=== PATIENT | female | born 1955 | race Caucasian/White ===

== ENCOUNTER → 2016-09-01 | Outpatient (CLI) | payer MEDICARE, OTHER ==
[~2016-09-01] MED LIST: ABILIFY2 MG PO; ABILIFY5 MG PO; ACETAMINOPHEN PO; ACETAMINOPHEN PR; ALBUTEROL1.25 MG/3 INH; ASPIRIN EC81 M1 PO; ASPIRIN81 MG PO; BYSTOLIC5 MG PO; CLARITIN10 M2 PO; CLARITIN10 M3 PO; CLOPIDOGREL75 MG PO; CYMBALTA PO; DELTASONE20 MG PO; DULOXETINE HCL60 MG PO; FLUVIRIN; GLUCOPHAGE500 M1 PO; GUAIFENESIN LA600 M1 PO; HYDROCHLOROTH12.5 MG PO; KEFLEX500 M1 PO; KLOR-CON PO; KLOR-CON SPRIN10 MEQ PO; LASIX PO; LEVAQUIN750 M1 PO; LEVAQUIN750 MG PO; LEVOTHROID150 MCG PO; LEVOTHYROXINE150 MC1 PO; LEVOXYL150 MCG PO; LIDOCAINE-PRILOC5 GM TOP; LORCET 10/650 T1 TAB PO; LORTAB 7.5-5001 TAB PO; LYRICA50 MG PO; LYRICA75 MG PO; MEDROL DOSEPAK4 MG PO; MEDROL4 MG/DOSE- PO; METFORMIN HCL500 M1 PO; MORGIDOX100 MG PO; MORPHINE SULFAT15 M3 PO; MORPHINE SULFAT30 M4 PO; NICOTINE TRANSD21 MG EXT; OMEPRAZOLE20 M1 PO; OMEPRAZOLE20 M2 PO; ORAMORPH SR15 MG PO; OS-CAL 500 + D500 MG PO; OXYCODONE HCL15 MG PO; OXYCODONE HCL30 MG PO; PHENERGAN25 M1 PO; PLAVIX PO; PRAVACHOL20 MG PO; PRAVASTATIN SOD20 MG PO; PREDNISONE PO; PREDNISONE1 MG; PRILOSEC20 M1 PO; PRILOSEC20 MG PO; PROMETHAZINE D118 ML PO; PROMETHAZINE HC25 MG PO; PROZAC PO; ROXICODONE30 M1 PO; SPIRIVA RESPIMAT4 G1 PO; SPIRIVA18 MCG INH; SYMBICORT INH; SYNTHROID PO; TUDORZA PRESS400 MCG IH; VIBRAMYCIN100 M1 PO; ZANAFLEX2 M2 PO; ZANAFLEX4 M1 PO; ZOCOR PO; ZOFRAN8 MG PO
--- NOTE | ~2016-09-01 | XA91 ---
[facility] A Service of [facility] & [facility] RADIOLOGY TEXT RESULTS PATIENT: SERGO IBARRA LOCATION: CIVR : 57 UNIT #: [id number] AGE: [address]: Odilia Bullock MD SEX: F ORDER DR: [id number] [facility] [address]. [place], [place] [address] [id number] O MR#: [id number] Acc #: [id number] NAME: SERGO IBARRA : 1955 SEX: F STUDY DATE/TIME: 09/01/2016 11:12 UNIT: CIVR ROOM: STUDY DESCRIPTION: XA CVC Tunneled W Port Attending Physician: Odilia Bullock M.D. Ordering Physician: Odilia Bullock M.D. Primary Care Physician: Ananya Armstrong M.D. MEDICAL IMAGING REPORT This report is preliminary unless electronic signature is present EXAM Port placement under ultrasound and fluoroscopic guidance HISTORY Lung cancer. TECHNIQUE The procedure was explained the patient including risks, benefits and complications. Informed consent was obtained and a formal time-out procedure was utilized. Full barrier sterile technique was employed via standard protocol. Conscious sedation was employed with intravenous Versed and Fentanyl that was administered by nursing who was present and monitoring the patient during the examination. Using full barrier sterile technique and following local anesthesia with 1% Xylocaine, a right internal jugular vein was punctured with ultrasound guidance. Ultrasound was used to confirm vessel patency, which was confirmed, and permanent ultrasound images were recorded. A micropuncture set was used. An 0.035 guidewire was passed through the micropuncture sheath and a peel-away sheath was placed. Attention was then directed to the right infraclavicular space where a port pocket was created using a combination of blunt and sharp dissection after local anesthesia with 1% lidocaine with epinephrine. A slim power port was placed and tunneled from the port pocket to the jugular vein puncture site. It was measured to 23 cm, cut and deployed through the peel-away sheath with the tip positioned at the cavoatrial junction. The port was flushed with heparin solution and the port pocket was irrigated with saline. The pocket was closed with an interrupted subcutaneous layer of 3-0 Vicryl suture followed by running 4-0 subcuticular stitch with Monocryl. Dermabond glue was placed at the port pocket site and at the jugular vein puncture site. Total fluoroscopy time 0.1 minutes with a STS. [facility] A Service of [facility] & [facility] RADIOLOGY TEXT RESULTS PATIENT: SERGO [facility]BARRA [id number] [birth year] UNIT #: [id number] AGE: [address]: Odilia Bullock MD SEX: F ORDER DR: total dose of 2 mGy. IMPRESSION Successful placement of a port with ultrasound and fluoroscopic guidance as described above. Dictated by... Jonathan Cardenas M.D. THIS IS AN ELECTRONICALLY VERIFIED REPORT Jonathan Cardenas M.D. at 09/02/2016 8:39 AM RONI/andrew TD: 09/01/2016 20:32 JOB #: [id number] MEDICAL IMAGING REPORT COPY
[2016-09-01 08:59] LABS: HEMATOCRIT 37.3 % (35.0-45.0); HEMOGLOBIN 12.1 gm/dL (12.0-16.0); MEAN CELL VOLUME 87.9 FL (83-96); MEAN CORPUSCULAR HEMOGLOBIN 28.4 PG (28-34); MEAN CORPUSCULAR HGB CONC 32.4 g/dL (30-36); MEAN PLATELET VOLUME 7.7 FL (6.5-11.5); RED BLOOD COUNT 4.24 X10e (3.90-5.30); RED CELL DISTRIBUTION WIDTH 14.6 % (11.0-15.5); WHITE BLOOD COUNT 8.7 X10e3 (4.0-10.5)
[2016-09-01 09:11] LABS: INR 0.9; PARTIAL THROMBOPLASTIN TIME 23.1 SECONDS (23.5-31.3); PROTHROMBIN TIME (PATIENT) 9.9 SECONDS (9.6-11.5)
== END | disposition home or self-care (01) ==
LOC: CIVR 08:28
PROVIDERS: Internal Medicine Hematology
PROC: 05HM33Z Insertion of Infusion Device into Right Internal Jugular Vein, Percutaneous Approach (ICD-10-PCS; principal; 2016-09-01)
DX: Z45.2 Encounter for adjustment and management of vascular access device (principal); C34.2 Malignant neoplasm of middle lobe, bronchus or lung; J43.9 Emphysema, unspecified; Z99.81 Dependence on supplemental oxygen; C79.51 Secondary malignant neoplasm of bone; C78.7 Secondary malignant neoplasm of liver and intrahepatic bile duct; R59.0 Localized enlarged lymph nodes; M54.5 Low back pain; I31.3 Pericardial effusion (noninflammatory); K57.30 Diverticulosis of large intestine without perforation or abscess without bleeding; E27.9 Disorder of adrenal gland, unspecified; Z85.850 Personal history of malignant neoplasm of thyroid; Z96.642 Presence of left artificial hip joint; Z88.6 Allergy status to analgesic agent
CPT/HCPCS: 36415; 76937; 77001; 85027; 85610; 85730; C1788; J0690; J1642; J2250; J3010

== ENCOUNTER 2016-09-08 13:18 | Inpatient (IN) | payer MEDICARE, OTHER ==
--- NOTE | ~2016-09-08 | EKG ---
PATIENT: SERGO IBARRA UNIT #: [id number] Ventricular Rate: 115 BPM Atrial Rate: 115 BPM P-R Interval: 126 ms QRS Duration: 72 ms Q-T Interval: 314 ms QTC Calculation(Bezet): 434 ms P [place]: 79 degrees Calculated R [place]: 33 degrees Calculated T [place]: 62 degrees Diagnosis Line: Sinus tachycardia Baseline wander Diagnosis Line: Otherwise normal ECG Diagnosis Line: When compared with ECG of 11-AUG-2016 03:57, Diagnosis Line: No significant change was found Diagnosis Line: Confirmed by NETTA TEJADA MD ([id number]) on 09/09/2016 Diagnosis Line: 5:40:50 PM INTERPRETING MD: MALLORY PINEDA
--- NOTE | ~2016-09-08 | EKG ---
PATIENT: SERGO IBARRA UNIT #: [id number] Ventricular Rate: 106 BPM Atrial Rate: 106 BPM P-R Interval: 118 ms QRS Duration: 72 ms Q-T Interval: 340 ms QTC Calculation(Bezet): 451 ms P [place]: 74 degrees Calculated R [place]: 22 degrees Calculated T [place]: 50 degrees Diagnosis Line: Sinus tachycardia with Premature atrial complexes Diagnosis Line: with Aberrant conduction Diagnosis Line: Nonspecific ST abnormality Diagnosis Line: Abnormal ECG Diagnosis Line: When compared with ECG of 08-SEP-2016 13:08, Diagnosis Line: Aberrant conduction is now Present Diagnosis Line: ST now depressed in Inferior leads Diagnosis Line: Confirmed by FIDEL CASE MD ([id number]) on Diagnosis Line: 09/15/2016 11:23:20 AM INTERPRETING MD: MANPREET PINEDA
--- NOTE | ~2016-09-08 | HP ---
Unit #: [id number] #: [id number] Patient: SERGO ROWLEY [id number] [address] [address] [id number] I MR#: [id number] NAME: SERGO ROWLEY ROOM: 304 Age: 61 Sex: F Admission Date: 09/08/2016 : 1955 Attending Physician: Ellen Del Castillo M.D. Primary Care Physician: Ananya Armstrong M.D. HISTORY AND PHYSICAL ADMISSION DIAGNOSES 1. Acute hypoxemic respiratory failure. 2. Acute exacerbation of chronic obstructive pulmonary disease. 3. History of recently diagnosed lung cancer, status post chemotherapy. 4. Acute bronchitis. 5. Hypertension. 6. History of dyslipidemia. 7. History of cerebrovascular accident. HISTORY OF PRESENT ILLNESS Ms. Rowley is a 61-year-old female with a past medical history of recently diagnosed lung cancer, status post chemo, along with COPD and chronic respiratory failure, who comes to the emergency room with complaints of increasing shortness of air and dyspnea for the last three to four days, along with some productive cough. The patient denies any other symptoms and denies any fever, chills, chest pain, headache, dizziness, nausea, vomiting, diarrhea, or abdominal pain. So a 12-point review of systems on this patient basically is negative except as above. PAST MEDICAL HISTORY 1. Recently diagnosed lung cancer. 2. Chronic obstructive pulmonary disease. 3. Chronic respiratory failure. 4. Dyslipidemia. 5. Hypertension. 6. Cerebrovascular accident in the past. 7. Thyroid cancer, status post thyroidectomy. 8. Transient ischemic attacks. 9. Chronic back pain. 10. Tobacco use. PAST SURGICAL HISTORY 1. Thyroid surgery. 2. Multiple back surgeries. 3. Diagnostic bronchoscopy. HOME MEDICATIONS 1. Symbicort. 2. Bystolic. 3. Lyrica. 4. Glucophage. 5. Hydrochlorothiazide. 6. Omeprazole. 7. Cymbalta. Unit #: [id number] #: [id number] Patient: SERGO ROWLEY 8. Oxycodone. 9. Pravastatin. 10. Klor-Con. 11. Albuterol. 12. Levothyroxine. 13. Plavix. 14. Zofran. 15. Phenergan. 16. Lidocaine topical. ALLERGIES ASPIRIN AND NSAIDS GENERALLY. SOCIAL HISTORY No current history of tobacco, alcohol, or illicit drugs. FAMILY HISTORY Unremarkable. PHYSICAL EXAMINATION GENERAL: Patient is a 61-year-old female in no acute distress. VITAL SIGNS: Blood pressure 154/93, heart rate 97, respirations 22, and temperature 97.5. HEENT: Head is atraumatic. Pupils equal, round, and reactive to light and accommodation. Extraocular muscles intact. Oropharynx clear. NECK: Supple. No mass, no JVD, and no bruits. CHEST: Diminished bilaterally. CARDIOVASCULAR: S1 and S2. No murmurs. ABDOMEN: Soft, nontender, and nondistended. LOWER EXTREMITIES: Without any cyanosis, clubbing, or edema. NEUROLOGIC: Grossly intact with no new focal deficits. DIAGNOSTIC STUDIES LABORATORY: White count 10.5 and hemoglobin and hematocrit 12 and 36.9. Set of cardiac enzymes negative. Coagulation panel unremarkable. Chemistry significant for blood glucose of 148. IMAGING: Chest x-ray shows no new infiltrates. CT angiogram of the chest shows a large right hilar mass. No CT evidence of pulmonary embolus. ASSESSMENT AND PLAN 1. Acute respiratory failure secondary to acute exacerbation of chronic obstructive pulmonary disease. Continue bronchodilators and steroids. Pulmonary follows. 2. History of lung cancer, status post initiation of chemotherapy, status post IV port. 3. Acute bronchitis. Continue Levaquin. 4. Hypertension. Resume home medications. 5. Dyslipidemia. Continue home medications. 6. History of cerebrovascular accident and transient ischemic attacks. Continue home medications. 7. Continue current gastrointestinal and deep venous thrombosis prophylaxis with Protonix and Lovenox. 4. 1. Dictated by Roldan Calix M.D. Unit #: [id number] #: [id number] Patient: SERGO ROWLEY OC/kiara TD: 09/09/2016 21:51 JOB #: [id number] HISTORY AND PHYSICAL X Roldan Calix MD HISTORY AND PHYSICAL
--- NOTE | ~2016-09-08 | CR72 ---
[facility] A Service of [facility] & [facility] RADIOLOGY TEXT RESULTS PATIENT: SERGO IBARRA LOCATION: [facility] : [birth year] UNIT #: [id number] AGE: [address]: Chandana Yusuf MD SEX: F ORDER DR: [id number] [facility] [address] [facility]. [place], [place] [address] [id number] MR#: [id number] Acc #: [id number] NAME: SERGO IBARRA : 1955 SEX: F STUDY DATE/TIME: 09/08/2016 13:05 UNIT: [facility] ROOM: STUDY DESCRIPTION: CR Chest Single View Portable Attending Physician: Chandana Yusuf M.D. Ordering Physician: Chandana Yusuf M.D. Primary Care Physician: Ananya Armstrong M.D. MEDICAL IMAGING REPORT This report is preliminary unless electronic signature is present EXAM Portable chest INDICATION 61-year-old female with shortness of breath for 2 days. COMPARISON Comparison with 08/11/2016. FINDINGS There is decreased infiltrate in the right upper zone. No new infiltrates. Heart size stable. Stable chest port. IMPRESSION Decreased right upper zone infiltrate. No new infiltrates. Dictated by... Bharath Gillette M.D. THIS IS AN ELECTRONICALLY VERIFIED REPORT Bharath Gillette M.D. at 09/08/2016 3:33 PM HOWARD/cindy TD: 09/08/2016 15:20 JOB #: [id number] MEDICAL IMAGING REPORT COPY
--- NOTE | ~2016-09-08 | CO ---
Unit #: [id number] #: [id number] Patient: SERGO IBARRA [id number] [address] [place], [place] [address] [id number] I MR#: [id number] NAME: SERGO IBARRA ROOM: 304 Age: 61 Sex: F Admission Date: 09/08/2016 : 1955 Attending Physician: Ellen Del Castillo M.D. Primary Care Physician: Ananya Armstrong M.D. 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 HISTORY OF PRESENT ILLNESS This is a 61-year-old female who started smoking at age of 17. She has been smoking 2 packs per day for 40 years. The patient came to the hospital short of breath, left-sided pleuritic chest pain. She lost about 40 pounds in 8 months. She was trying to lose weight, as well. The patient had a CT of the chest PE protocol on August 13, 2016. There were multiple abnormalities. There is a 3 cm lymph node in the right paratracheal region. The patient had a subcarinal mass measuring about 3.8 x 2.3 cm. Right upper lobe mass was almost 6 cm. Multiple lesions in the liver and vertebral body. Bronchoscopy was positive for small cell lung cancer. MRI of the brain was normal. The patient had a PET scan on August 20." It showed wide-spread disease in the lung, the liver and the bone. There is a significant lesion in the right pelvic bone. The patient received 1 cycle of DRAFTER CHIEF DESIGN-16 and carboplatin. Yesterday the patient had significant shortness of breath, dyspnea on exertion, decline in performance status. As a result, she is admitted. She has acute exacerbation of COPD. She is receiving inhaler, antibiotics and steroid. REVIEW OF SYSTEMS CONSTITUTIONAL: No fever, no chills, no sweats, no weight loss. EYES: No visual symptoms. EARS, NOSE AND THROAT: There is no runny nose or sore throat or difficulty hearing. CARDIOVASCULAR: No chest pain. No shortness of breath. No palpitations. No orthopnea. No PND. RESPIRATORY: As mentioned above. GASTROINTESTINAL: No nausea, vomiting, diarrhea, constipation, hematochezia or melena. GENITOURINARY: No urinary frequency, hesitancy or urgency. No blood in the urine. MUSCULOSKELETAL: No muscle or joint pain. NEUROLOGIC: No headache. No numbness or tingling. No weakness. No seizure. PSYCHIATRIC: No anxiety, depression or mood disturbance. ENDOCRINE: No excessive urination or thirst. DERMATOLOGIC: No rash or change in the skin. ALLERGIC/IMMUNOLOGIC: No symptoms. Unit #: [id number] #: [id number] Patient: SERGO IBARRA HEMATOLOGIC/LYMPHATIC: Denies any symptoms. PAST MEDICAL HISTORY 1. Small cell lung cancer, stage IV, wide-spread disease in the lung, liver and bones. 2. COPD. 3. Hypertension. 4. TIA, on Plavix. PAST SURGICAL HISTORY 1. Back surgery x2. 2. Left-sided hip replacement. 3. Hysterectomy. ALLERGIES NSAIDs and aspirin. SOCIAL HISTORY As mentioned above, she started smoking at a very young age. Has more than 80 pack-year smoking history. Denies alcohol abuse. She is on disability. FAMILY HISTORY Mother had breast cancer, but she was in her 70s. CURRENT MEDICATIONS Lovenox, Levaquin, Solu-Medrol, DuoNeb, Lipitor, Lyrica, Phenergan, Protonix, Coreg, Combivent. PHYSICAL EXAMINATION GENERAL: Patient is comfortable. ECOG is 0. The patient is pleasant. VITALS: Afebrile. Pulse 88, respiratory rate 20, O2 sat on 3 liters 97%, blood pressure 150/96. HEENT: Moist mucosa. Pupils equally reactive to light. Extraocular muscles intact. Sclerae anicteric. No obvious bleeding from nasal mucosa or oral mucosa. Scalp normal. Hearing normal. NECK: No JVD. No lymphadenopathy. LYMPHATIC/HEMATOLOGIC: There is no palpable adenopathy in the neck, axilla or inguinal area. CARDIOVASCULAR: S1, S2. Regular rate and rhythm. No S3 or S4. RESPIRATORY: Chest symmetrical, normal. Clear to auscultation bilaterally. No wheezes, no rales, no rhonchi. No dullness to percussion. ABDOMEN/GASTROINTESTINAL: Abdomen is soft, nontender, nondistended. No hepatosplenomegaly. EXTREMITIES: There is no clubbing, no cyanosis, no edema. No varicose veins. NEUROLOGICAL: Patient is alert, awake and oriented x3. Cranial nerves II-XII are intact. Sensory grossly intact. Motor is 4/5 in all four extremities. Gait is normal. Station is normal. Language is normal. Memory is normal. DTRs +2 in all four extremities. MUSCULOSKELETAL: No joint swelling. No bony tenderness. No muscle tenderness. SKIN: No petechiae, no rash, no ecchymosis. PSYCHIATRIC: No anxiety. No delusions or hallucinations. There is no agitation. Eye contact is normal. Affect is appropriate. There is no flight of ideas. DIAGNOSTIC STUDIES LABS: Creatinine is 0.5. LFTs are normal. WBC is 10.5, hemoglobin 12, Unit #: [id number] #: [id number] Patient: SERGO IBARRA platelets 230. IMAGING: CT of the chest PE protocol on 09/08/2016. No PE, but the above-mentioned masses are persistent. ASSESSMENT AND PLAN This is a 61-year-old female with the following active issues: 1. Small cell lung cancer. The patient has extensive stage IV disease. The patient has metastatic disease in the liver and the bone. She received one cycle of DRAFTER CHIEF DESIGN-16 and carboplatin. She already received Neulasta. Once her acute condition resolves, then in 3 weeks she will receive second cycle. She is also on Zometa. 2. Respirations. The patient has acute exacerbation of COPD. She is receiving steroid, antibiotic and inhaler. Will consult Dr. Mckenzie. 3. Anemia; improved. Dictated by... Jenna Barrios TD: 09/09/2016 11:00 JOB #: [id number] CONSULTATION REPORT X Odilia Bullock MD X CONSULTATION REPORT
--- NOTE | ~2016-09-08 | DS ---
Unit #: [id number] #: [id number] Patient: SERGO IBARRA [id number] [address] [place], [place] [address] [id number] I MR#: [id number] NAME: SERGO IBARRA ROOM: 304 Age: 61 Sex: F Admission Date: 09/08/2016 : 1955 Discharge Date: Attending Physician: Ellen Del Castillo M.D. Primary Care Physician: Ananya Armstrong M.D. DISCHARGE SUMMARY ADDENDUM Patient's discharge was held yesterday to rehab facility as family had a discussion with Dr. Bullock at length and patient's code status was changed to DNR and family requests for hospice care. Hospice has been consulted and possibly she will be going home under hospice care. I have discussed with Dr. Bullock about plan of care. He does verbalize understanding and agreeable. Discussed with patient this morning and she is agreeable to this plan. [facility] nurse, Shanice, will be here this morning for discharge. VITAL SIGNS today - blood pressure is 107/67, respiratory rate 18, pulse is 103, temperature 97.9. CHEST has decreased air entry bilaterally. CVS - S1, S2 positive. ABDOMEN is obese. EXTREMITIES - trace edema. DISCHARGE INSTRUCTIONS 1. Patient is being discharged home in stable condition. 2. Med Rec as per discharge dictated earlier. 3. Med Rec has been reviewed again today. Please refer to the discharge Med Rec for complete list. Dictated by... Ellen Del Castillo M.D. MICKY/donna TD: 09/17/2016 09:23 JOB #: [id number] DISCHARGE SUMMARY X Ellen Del Castillo MD X DISCHARGE SUMMARY
--- NOTE | ~2016-09-08 | CR72 ---
[facility] A Service of [facility] & [facility] RADIOLOGY TEXT RESULTS PATIENT: SERGO IBARRA LOCATION: [facility] 304-01 : [birth year] UNIT #: [id number] AGE: [address]: Ellen Del Castillo MD SEX: F ORDER DR: [id number] [facility] [address] [place], [place] [address] [id number] I MR#: [id number] Acc #: [id number] NAME: SERGO IBARRA : 1955 SEX: F STUDY DATE/TIME: 09/10/2016 15:39 UNIT: [address] ROOM: [facility] STUDY DESCRIPTION: CR Chest Single View Portable Attending Physician: Ellen Del Castillo M.D. Ordering Physician: Ellen Del Castillo M.D. Primary Care Physician: Ananya Armstrong M.D. MEDICAL IMAGING REPORT This report is preliminary unless electronic signature is present EXAM AP portable chest, 09/10/2016. HISTORY Pneumonia. Right upper lobe mass. COMPARISON STUDIES Single portable AP view of the chest compared to chest CT dated 09/08/2016 and chest radiograph, dated 09/08/2016. FINDINGS Heart and mediastinal contours are unchanged. Right upper lobe pulmonary opacity/mass is unchanged from the prior study. There is background emphysema. No new pulmonary opacities. IMPRESSION 1. No interval change. 2. Right upper lobe area of consolidation/mass. Dictated by... Marquez Mcadams M.D. THIS IS AN ELECTRONICALLY VERIFIED REPORT Marquez Mcadams M.D. at 09/13/2016 8:06 AM TAYLOR/tootie TD: 09/11/2016 10:14 JOB #: [id number] MEDICAL IMAGING REPORT COPY
--- NOTE | ~2016-09-08 | DS ---
Unit #: [id number] #: [id number] Patient: LESLIE IBARRA [id number] [address] [address] [id number] I MR#: [id number] NAME: LESLIE IBARRA ROOM: 304 Age: 61 Sex: F Admission Date: 09/08/2016 : 1955 Discharge Date: 09/16/2016 Attending Physician: Ellen Del Castillo M.D. Primary Care Physician: Ananya Armstrong M.D. DISCHARGE SUMMARY FINAL DIAGNOSES 1. Small cell lung cancer stage 4. 2. Acute on chronic respiratory failure. 3. Chronic obstructive pulmonary disease exacerbation. 4. Hypertension. 5. Hyperlipidemia. 6. Hypokalemia. 7. Leukopenia and thrombocytopenia. 8. History of cerebrovascular accident in the past. 9. Thyroid cancer, status post thyroidectomy. 10. Chronic back pain. 11. Tobacco abuse. DISCHARGE MEDICATIONS 1. Prednisone tapering dose. 2. Omeprazole 20 mg p.o. daily. 3. Plavix 75 mg p.o. daily. 4. Oxycodone 15 mg p.o. 4 times a day. 5. Pravastatin 20 mg daily. 6. Hydrochlorothiazide 12.5 mg daily. 7. Milk of magnesia 30 mL q.12 p.r.n. for constipation. 8. Colace 100 mg 3 times a day. 9. Coreg 3.125 mg twice a day. 10. Zofran 4 mg q.6 p.r.n. for nausea. 11. Marinol 5 mg twice a day. 12. Cymbalta 60 mg daily. 13. Lyrica 75 mg 3 times a day. 14. Symbicort 160/4.5 two puffs inhaler twice a day. 15. Nebulizer treatment with albuterol and ipratropium q.i.d. and q.4 p.r.n. 16. Synthroid 150 mcg p.o. daily. 17. Folic acid 1 mg p.o. daily. 18. Cyanocobalamin 1,000 mcg subcu daily. 19. Potassium 40 mg p.o. daily. CONSULTANTS DURING HOSPITALIZATION 1. Dr. Bullock from oncology services. 2. Dr. Mckenzie from pulmonary services. ADMITTING PHYSICIAN Dr. Calix DISCHARGING PHYSICIAN Dr. Ellen Del Castillo Unit #: [id number] #: [id number] Patient: LESLIE IBARRA HOSPITAL COURSE Ms. Leslie Armijo is a 61-year-old female who has a history of stage 4 small cell lung cancer, which is metastatic to liver, adrenal gland, L1 vertebral body and right pelvis bone, came to the hospital with shortness of breath, left-sided pleuritic chest pain. She has lost a lot of weight, about 40 pounds in eight months. Patient was seen by Dr. Mckenzie and was started on antibiotics and IV Solu-Medrol. That will be changed to steroids. Her oxygenation has improved. She will be on home O2 to keep her saturation above 92%. The patient did have nausea and vomiting, which has improved. The patient had pancytopenia, most likely secondary to chemotherapy, which was just prior to coming to hospitalization. Dr. Bullock has been meeting with family today at 12:00 before discharge to rehab facility to discuss the code status and further plan. The patient does have a poor prognosis, this has been told to family on multiple occasions by the [facility]. Vital signs on discharge - blood pressure is 120/64, respiratory rate 16, pulse 110, temperature 98.2. Head is normocephalic. Chest has decreased air entry bilateral. CVS - S1 and S2 positive. Regular rhythm, tachycardia. DISCHARGE INSTRUCTIONS 1. The patient will be discharged to rehab facility after meeting with Dr. Bullock. 2. Medication as per med rec. 3. PT and OT at rehab. 4. Follow up with Dr. Bullock in the office in a week. 5. BMP and magnesium to be done tomorrow to evaluate hypokalemia and magnesemia. Dictated by... Jenna Alvarado TD: 09/16/2016 12:09 JOB #: [id number] DISCHARGE SUMMARY X Ellen Del Castillo MD DISCHARGE SUMMARY
--- NOTE | ~2016-09-08 | CT16 ---
[facility] A Service of [facility] & [facility] RADIOLOGY TEXT RESULTS PATIENT: SERGO IBARRA LOCATION: [facility] 304-01 : 56 UNIT #: [id number] AGE: [address]: Ellen Del Castillo MD SEX: F ORDER DR: [id number] [facility] [address] [place], [place] [address] [id number] I MR#: [id number] Acc #: [id number] NAME: SERGO IBARRA : 1955 SEX: F STUDY DATE/TIME: 09/08/2016 14:50 UNIT: A PCU ROOM: [facility] STUDY DESCRIPTION: CT Angio Chest for PE Attending Physician: Ellen Del Castillo M.D. Ordering Physician: Chandana Yusuf M.D. Primary Care Physician: Ananya Armstrong M.D. MEDICAL IMAGING REPORT This report is preliminary unless electronic signature is present EXAM CTA chest with pulmonary embolus protocol. DATE OF EXAM 09/08/2016 INDICATIONS Shortness of breath for 2 days. TECHNIQUE Patient was given 80 mL of Isovue-370, and spiral imaging was performed through the chest. 3-D reconstructions of the pulmonary arteries were generated. NOTE: This CT exam was performed with one or more of the following radiation dose reduction techniques: automatic exposure control, adjustment of mA and/or kV according to patient size, and iterative reconstruction. FINDINGS There is adequate opacification of the aorta, and there is no dissection or enlargement. Pulmonary arteries are adequately opacified and they appear normal. 3-D reconstructions of the pulmonary arteries were generated. There is extensive mediastinal mass or adenopathy. In the right superior mediastinum, there is a mass inseparable from the greater subclavian vein and brachiocephalic vein. It is about 2.7 x 2.5 cm. There is a right paratracheal mass measuring at least 4.2 x 2.8 cm compressing the IVC. There is a right hilar mass surrounding the right hilar structures extending in the subcarinal region, it is about 6.6 x 5.9 cm. The adenopathy extends down the right infrahilar region with a node measuring 18 mm in diameter. Small pericardial effusion. There is a right adrenal mass measuring 2 cm in diameter, that is uniform in soft tissue density and there is a left adrenal mass that is 2.4 cm in diameter that clearly has some fat within it. The right hilar mass extends a short distance up into the right upper lobe. There are multiple noncalcified STS. [facility] A Service of [facility] RADIOLOGY TEXT RESULTS PATIENT: SERGO IBARRA LOCATION: A 304-01 : 57 UNIT #: [id number] AGE: [address]: Ellen Del Castillo MD SEX: F ORDER DR: pulmonary nodules. There are 2 nodules in the right base measuring up to about 8 mm in diameter and at least 2 to 3 other smaller nodules in the right lower lobe superior segment. There is emphysematous change in the upper lobes. There is a pleural-based nodule in the left base measuring 6 mm in diameter. There is a sclerotic 1 cm lesion in L1, that is possibly a metastatic deposit. The patient has known metastatic disease, and there are low density lesions in the liver. IMPRESSION 1. There is a large right hilar mass with a separate right paratracheal mass and superior mediastinal mass on the right side, consistent with malignancy. The mass in the right hilum extends upwards into the right upper lobe, as well as downwards into the right infrahilar region. There are also small nodules in the right lower lobe, as well as 1 small nodule in the left lower lobe suggesting metastatic disease. 2. There is no CT evidence colon embolus. Dictated by... Rodger Kurtz M.D. THIS IS AN ELECTRONICALLY VERIFIED REPORT Rodger Kurtz M.D. at 09/09/2016 6:04 AM SAEID/staci TD: 09/08/2016 21:06 JOB #: [id number] MEDICAL IMAGING REPORT COPY
--- NOTE | ~2016-09-08 | CO ---
Unit #: [id number] #: [id number] Patient: SERGO IBARRA [id number] [address] [place], [place] [address] [id number] MR#: [id number] NAME: SERGO IBARRA ROOM: 304 Age: 61 Sex: F Admission Date: 09/08/2016 : 1955 Attending Physician: Ellen Del Castillo M.D. Primary Care Physician: Ananya Armstrong M.D. CONSULTATION REPORT REASON FOR CONSULTATION Respiratory failure and COPD exacerbation. CHIEF COMPLAINT Shortness of breath. HISTORY OF PRESENT ILLNESS This patient basically is a 61-year-old female diagnosed recently with small cell lung cancer status post chemotherapy. Came in with complaint of cough, shortness of breath, increasing sputum production for the last 2-3 days. I am seeing the patient at the bedside. She denies any nausea, vomiting, diarrhea. Appears to be in mild distress. REVIEW OF SYSTEMS Positive pallor. No edema. No cyanosis. No jaundice. The rest of a 12-point review of systems has been reviewed and is negative. PHYSICAL EXAMINATION VITAL SIGNS: Her temperature is 97, pulse 95, respirations 16, blood pressure 137/97. NEUROLOGIC: Awake, alert and oriented. No neuro deficits. HEENT: PERRLA. EOMI. NECK: Supple. No JVD. CHEST: Bilateral air entry. Bilateral mild rhonchi. GI: Nontender. Soft. Bowel sounds are positive. EXTREMITIES: No edema. SKIN: No rashes, no ulcer. LYMPHATIC: No lymphadenopathy. DIAGNOSTIC STUDIES LABS: Blood gas - pH 7.34, pCO2 56, pO2 96 on 2 liters. Sodium is 148, BUN 8, creatinine 0.5. White count 10, hemoglobin 12, hematocrit 36, platelet count 230. IMAGING: CT chest PE protocol was done, which showed large right hilar mass with a separate right paratracheal mass and superior mediastinal mass on the right side consistent with malignancy. Mass in the right hilum extends upwards toward the right upper lobe. Also, small nodules in the right lower lobe. No evidence of pulmonary embolism. No consolidation. ASSESSMENT 1. Acute hypoxic respiratory failure. 2. Acute exacerbation of COPD. 3. Acute bronchitis. Unit #: [id number] #: [id number] Patient: SERGO IBARRA PLAN Plan is to check the patient for flu. Continue IV steroids. Add IV antibiotics. Continue oxygen, bronchodilator. GI and DVT prophylaxis. Oncology consultation has been requested. Will continue to monitor the patient. Please see orders for detailed plan. Thank you very much for this consultation. Dictated by... Jenna Mascorro/timo TD: 09/09/2016 13:29 JOB #: [id number] CONSULTATION REPORT X aFye Mckenzie MD CONSULTATION REPORT
[2016-09-08 13:00] LABS: ARTERIAL BLD GAS O2 SATURATION 96.1 % (90.0-100.0); ARTERIAL BLOOD GAS CARBOXY HB 0.9 %sat (0.0-9.0); ARTERIAL BLOOD GAS HCO3 30.9 mmol/L; ARTERIAL BLOOD GAS MET HB 0.8 %sat (0.0-2.0); ARTERIAL BLOOD GAS PO2 96.8 mmHg (80.0-100); ARTERIAL BLOOD GAS pH 7.344 (7.350-7.450)
[2016-09-08 13:03] LABS: ARTERIAL BLOOD GAS ALLEN TEST NORMAL; ARTERIAL BLOOD GAS ART SITE RIGHT RADIAL; ARTERIAL BLOOD GAS PCO2 56.8 mmHg (35.0-45.0); ARTERIAL DRAW? YES
[2016-09-08 13:04] LABS: ARTERIAL BLOOD GAS DELIVERY NASAL CANNULA
[~2016-09-08 13:18] MED LIST changes: -LIDOCAINE-PRILOC5 GM TOP; -PROMETHAZINE HC25 MG PO; -ZOFRAN8 MG PO
[2016-09-08 13:21] LABS: BASOPHIL% 0.2 % (0-2.5); DIFF IND NO; EOSINOPHIL# 0.1 X10e3 (0-0.7); EOSINOPHIL% 0.5 % (0.0-7.0); HEMATOCRIT 36.9 % (35.0-45.0); LYMPHOCYTE# 0.4 X10e3 (1.0-3.5); LYMPHOCYTE% 3.7 % (17.0-45.0); MEAN CELL VOLUME 87.6 FL (83-96); MEAN CORPUSCULAR HEMOGLOBIN 28.5 PG (28-34); MEAN CORPUSCULAR HGB CONC 32.6 g/dL (30-36); MEAN PLATELET VOLUME 7.8 FL (6.5-11.5); MONOCYTE# 0.1 X10e3 (0-1.0); MONOCYTE% 1.2 % (3.0-12.0); NEUTROPHIL# 9.9 X10e3 (1.5-7.1); NEUTROPHIL% 94.4 % (40-75); PLATELET COUNT 230 X10e3 (140-420); RED BLOOD COUNT 4.22 X10e (3.90-5.30); RED CELL DISTRIBUTION WIDTH 15.1 % (11.0-15.5); WHITE BLOOD COUNT 10.5 X10e3 (4.0-10.5)
[2016-09-08 13:22] LABS: POC - CKMB 2.6 ng/mL (0.0-7.9); POC - TROPONIN <0.05 ng/mL (<=0.05)
[2016-09-08 13:44] LABS: ALBUMIN SERUM 3.4 g/dL (3.5-5.0); ALKALINE PHOSPHATASE 106 U/L (32-92); ALT (SGPT) 18 U/L (10-40); AST (SGOT) 25 U/L (10-42); BILIRUBIN, DIRECT 0.1 mg/dL (0.0-0.2); BILIRUBIN,INDIRECT 0.8 mg/dL (0.0-0.9); BILIRUBIN,TOTAL 0.9 mg/dL (0.2-2.0); BLOOD UREA NITROGEN 8 mg/dL (9-23); CALCIUM SERUM 8.1 mg/dL (8.4-10.2); CARBON DIOXIDE 29 mmol/L (22-31); CHLORIDE 98 mmol/L (100-111); CREATININE SERUM 0.5 mg/dL (0.6-1.4); GLOM FILT RATE Estimated ABOVE60 mL/min (>60); GLUCOSE FASTING 148 mg/dL (70-110); POTASSIUM 3.8 mmol/L (3.5-5.1); SODIUM 138 mmol/L (135-145)
[2016-09-08 13:57] LABS: INR 0.9; PARTIAL THROMBOPLASTIN TIME 23.5 SECONDS (23.5-31.3); PROTHROMBIN TIME (PATIENT) 9.9 SECONDS (9.6-11.5)
[2016-09-08] MEDS ORDERED: ZOFRAN8 MG PO (15:38)
[2016-09-08] MEDS ORDERED: PROMETHAZINE HC25 MG PO (15:39)
[2016-09-08] MEDS ORDERED: LIDOCAINE-PRILOC5 GM TOP (15:40)
[2016-09-09 12:50] LABS: ARTERIAL BLD GAS O2 SATURATION 94.7 % (90.0-100.0); ARTERIAL BLOOD GAS CARBOXY HB 0.9 %sat (0.0-9.0); ARTERIAL BLOOD GAS HCO3 30.1 mmol/L; ARTERIAL BLOOD GAS MET HB 0.5 %sat (0.0-2.0); ARTERIAL BLOOD GAS PCO2 51.3 mmHg (35.0-45.0); ARTERIAL BLOOD GAS pH 7.377 (7.350-7.450)
[2016-09-09 12:51] LABS: ARTERIAL BLOOD GAS ALLEN TEST NORMAL; ARTERIAL BLOOD GAS ART SITE RIGHT RADIAL; ARTERIAL BLOOD GAS DELIVERY NASAL CANNULA; ARTERIAL BLOOD GAS PO2 75.9 mmHg (80.0-100); ARTERIAL DRAW? YES
[2016-09-10 04:37] LABS: HEMATOCRIT 35.9 % (35.0-45.0); HEMOGLOBIN 11.6 gm/dL (12.0-16.0); MEAN CELL VOLUME 87.2 FL (83-96); MEAN CORPUSCULAR HEMOGLOBIN 28.2 PG (28-34); MEAN CORPUSCULAR HGB CONC 32.3 g/dL (30-36); RED BLOOD COUNT 4.12 X10e (3.90-5.30); RED CELL DISTRIBUTION WIDTH 14.6 % (11.0-15.5)
[2016-09-10 04:38] LABS: WHITE BLOOD COUNT 26.6 X10e3 (4.0-10.5)
[2016-09-10 04:40] LABS: ARTERIAL BLD GAS O2 SATURATION 96.1 % (90.0-100.0); ARTERIAL BLOOD GAS CARBOXY HB 0.9 %sat (0.0-9.0); ARTERIAL BLOOD GAS HCO3 31.3 mmol/L; ARTERIAL BLOOD GAS MET HB 0.8 %sat (0.0-2.0); ARTERIAL BLOOD GAS PCO2 52.4 mmHg (35.0-45.0); ARTERIAL BLOOD GAS PO2 91.2 mmHg (80.0-100); ARTERIAL BLOOD GAS pH 7.385 (7.350-7.450)
[2016-09-10 04:41] LABS: ARTERIAL BLOOD GAS ALLEN TEST NORMAL; ARTERIAL BLOOD GAS ART SITE RIGHT RADIAL; ARTERIAL BLOOD GAS DELIVERY NASAL CANNULA; ARTERIAL DRAW? YES
[2016-09-10 05:57] LABS: ALBUMIN SERUM 3.2 g/dL (3.5-5.0); ALKALINE PHOSPHATASE 95 U/L (32-92); ALT (SGPT) 17 U/L (10-40); AST (SGOT) 24 U/L (10-42); BILIRUBIN,TOTAL 0.9 mg/dL (0.2-2.0); BLOOD UREA NITROGEN 14 mg/dL (9-23); CALCIUM SERUM 7.4 mg/dL (8.4-10.2); CARBON DIOXIDE 29 mmol/L (22-31); CHLORIDE 94 mmol/L (100-111); CREATININE SERUM 0.5 mg/dL (0.6-1.4); GLOM FILT RATE Estimated ABOVE60 mL/min (>60); GLUCOSE FASTING 147 mg/dL (70-110); IRON SERUM 157 ug/dL (28-170); POTASSIUM 3.9 mmol/L (3.5-5.1); PROTEIN TOTAL SERUM 6.2 g/dL (6.0-8.3); SODIUM 132 mmol/L (135-145); TOTAL IRON BINDING CAPACITY 259 ug/dL (269-535); TRANSFERRIN 185 mg/dL (192-382); TRANSFERRIN SATURATION 61 % (20-50)
[2016-09-10 06:10] LABS: FERRITIN 295 ng/mL (11-307)
[2016-09-11 09:27] LABS: HEMOGLOBIN 11.7 gm/dL (12.0-16.0); MEAN CELL VOLUME 85.4 FL (83-96); MEAN CORPUSCULAR HEMOGLOBIN 27.7 PG (28-34); MEAN CORPUSCULAR HGB CONC 32.5 g/dL (30-36); MEAN PLATELET VOLUME 7.8 FL (6.5-11.5); RED BLOOD COUNT 4.21 X10e (3.90-5.30); RED CELL DISTRIBUTION WIDTH 14.2 % (11.0-15.5); WHITE BLOOD COUNT 25.3 X10e3 (4.0-10.5)
[2016-09-11 09:57] LABS: ALBUMIN SERUM 3.3 g/dL (3.5-5.0); ALKALINE PHOSPHATASE 101 U/L (32-92); ALT (SGPT) 17 U/L (10-40); AST (SGOT) 17 U/L (10-42); BILIRUBIN,TOTAL 0.8 mg/dL (0.2-2.0); BLOOD UREA NITROGEN 15 mg/dL (9-23); BUN/CREATININE RATIO 21.42; CALCIUM SERUM 7.6 mg/dL (8.4-10.2); CARBON DIOXIDE 31 mmol/L (22-31); CHLORIDE 93 mmol/L (100-111); CREATININE SERUM 0.7 mg/dL (0.6-1.4); GLOM FILT RATE Estimated ABOVE60 mL/min (>60); GLUCOSE FASTING 184 mg/dL (70-110); POTASSIUM 3.5 mmol/L (3.5-5.1); PROTEIN TOTAL SERUM 6.3 g/dL (6.0-8.3); SODIUM 133 mmol/L (135-145)
[2016-09-12 04:19] LABS: ARTERIAL BLD GAS O2 SATURATION 94.5 % (90.0-100.0); ARTERIAL BLOOD GAS CARBOXY HB 0.5 %sat (0.0-9.0); ARTERIAL BLOOD GAS HCO3 36.5 mmol/L; ARTERIAL BLOOD GAS MET HB 0.7 %sat (0.0-2.0); ARTERIAL BLOOD GAS pH 7.469 (7.350-7.450)
[2016-09-12 04:31] LABS: ARTERIAL BLOOD GAS ALLEN TEST NORMAL; ARTERIAL BLOOD GAS ART SITE RIGHT RADIAL; ARTERIAL BLOOD GAS DELIVERY NASAL CANNULA; ARTERIAL BLOOD GAS PCO2 50.3 mmHg (35.0-45.0); ARTERIAL BLOOD GAS PO2 71.2 mmHg (80.0-100); ARTERIAL DRAW? YES
[2016-09-12 06:19] LABS: HEMATOCRIT 34.6 % (35.0-45.0); HEMOGLOBIN 11.4 gm/dL (12.0-16.0); MEAN CELL VOLUME 85.2 FL (83-96); MEAN CORPUSCULAR HGB CONC 32.8 g/dL (30-36); RED BLOOD COUNT 4.06 X10e (3.90-5.30); RED CELL DISTRIBUTION WIDTH 14.4 % (11.0-15.5); WHITE BLOOD COUNT 18.2 X10e3 (4.0-10.5)
[2016-09-12 07:06] LABS: ALBUMIN SERUM 3.1 g/dL (3.5-5.0); ALKALINE PHOSPHATASE 94 U/L (32-92); ALT (SGPT) 16 U/L (10-40); AST (SGOT) 15 U/L (10-42); BILIRUBIN,TOTAL 0.8 mg/dL (0.2-2.0); BLOOD UREA NITROGEN 17 mg/dL (9-23); CALCIUM SERUM 7.9 mg/dL (8.4-10.2); CARBON DIOXIDE 33 mmol/L (22-31); CHLORIDE 90 mmol/L (100-111); CREATININE SERUM 0.5 mg/dL (0.6-1.4); GLOM FILT RATE Estimated ABOVE60 mL/min (>60); GLUCOSE FASTING 218 mg/dL (70-110); POTASSIUM 3.3 mmol/L (3.5-5.1); PROTEIN TOTAL SERUM 5.4 g/dL (6.0-8.3); SODIUM 134 mmol/L (135-145)
[2016-09-13 06:10] LABS: MEAN CELL VOLUME 84.4 FL (83-96); MEAN CORPUSCULAR HEMOGLOBIN 28.1 PG (28-34); MEAN CORPUSCULAR HGB CONC 33.3 g/dL (30-36); MEAN PLATELET VOLUME 8.5 FL (6.5-11.5); RED BLOOD COUNT 4.26 X10e (3.90-5.30); RED CELL DISTRIBUTION WIDTH 14.2 % (11.0-15.5); WHITE BLOOD COUNT 11.8 X10e3 (4.0-10.5)
[2016-09-13 06:55] LABS: ALBUMIN SERUM 3.2 g/dL (3.5-5.0); ALKALINE PHOSPHATASE 92 U/L (32-92); ALT (SGPT) 16 U/L (10-40); AST (SGOT) 15 U/L (10-42); BILIRUBIN,TOTAL 0.9 mg/dL (0.2-2.0); BLOOD UREA NITROGEN 19 mg/dL (9-23); BUN/CREATININE RATIO 31.66; CALCIUM SERUM 7.8 mg/dL (8.4-10.2); CARBON DIOXIDE 35 mmol/L (22-31); CHLORIDE 88 mmol/L (100-111); CREATININE SERUM 0.6 mg/dL (0.6-1.4); GLOM FILT RATE Estimated ABOVE60 mL/min (>60); GLUCOSE FASTING 156 mg/dL (70-110); PROTEIN TOTAL SERUM 5.5 g/dL (6.0-8.3); SODIUM 132 mmol/L (135-145)
[2016-09-13 07:08] LABS: POTASSIUM 2.9 mmol/L (3.5-5.1)
[2016-09-14 07:09] LABS: ALBUMIN SERUM 3.2 g/dL (3.5-5.0); ALKALINE PHOSPHATASE 98 U/L (32-92); ALT (SGPT) 18 U/L (10-40); AST (SGOT) 15 U/L (10-42); BLOOD UREA NITROGEN 18 mg/dL (9-23); CALCIUM SERUM 7.9 mg/dL (8.4-10.2); CARBON DIOXIDE 34 mmol/L (22-31); CHLORIDE 88 mmol/L (100-111); CREATININE SERUM 0.6 mg/dL (0.6-1.4); GLOM FILT RATE Estimated ABOVE60 mL/min (>60); GLUCOSE FASTING 163 mg/dL (70-110); PROTEIN TOTAL SERUM 5.5 g/dL (6.0-8.3); SODIUM 132 mmol/L (135-145)
[2016-09-14 07:14] LABS: POTASSIUM 2.7 mmol/L (3.5-5.1)
[2016-09-14 09:18] LABS: HEMATOCRIT 38.3 % (35.0-45.0); HEMOGLOBIN 12.7 gm/dL (12.0-16.0); MEAN CELL VOLUME 84.8 FL (83-96); MEAN CORPUSCULAR HEMOGLOBIN 28.1 PG (28-34); MEAN CORPUSCULAR HGB CONC 33.1 g/dL (30-36); MEAN PLATELET VOLUME 8.7 FL (6.5-11.5); RED BLOOD COUNT 4.51 X10e (3.90-5.30); RED CELL DISTRIBUTION WIDTH 14.4 % (11.0-15.5)
[2016-09-14 10:01] LABS: WHITE BLOOD COUNT 3.1 X10e3 (4.0-10.5)
[2016-09-15 05:48] LABS: HEMATOCRIT 35.7 % (35.0-45.0); MEAN CELL VOLUME 83.6 FL (83-96); MEAN CORPUSCULAR HEMOGLOBIN 28.1 PG (28-34); MEAN CORPUSCULAR HGB CONC 33.7 g/dL (30-36); MEAN PLATELET VOLUME 9.2 FL (6.5-11.5); RED BLOOD COUNT 4.28 X10e (3.90-5.30); RED CELL DISTRIBUTION WIDTH 14.2 % (11.0-15.5)
[2016-09-15 06:11] LABS: ALBUMIN SERUM 3.2 g/dL (3.5-5.0); ALKALINE PHOSPHATASE 81 U/L (32-92); ALT (SGPT) 17 U/L (10-40); AST (SGOT) 18 U/L (10-42); BILIRUBIN,TOTAL 1.1 mg/dL (0.2-2.0); BLOOD UREA NITROGEN 14 mg/dL (9-23); CALCIUM SERUM 7.7 mg/dL (8.4-10.2); CARBON DIOXIDE 35 mmol/L (22-31); CHLORIDE 87 mmol/L (100-111); CREATININE SERUM 0.4 mg/dL (0.6-1.4); GLOM FILT RATE Estimated ABOVE60 mL/min (>60); GLUCOSE FASTING 146 mg/dL (70-110); PROTEIN TOTAL SERUM 5.6 g/dL (6.0-8.3); SODIUM 129 mmol/L (135-145)
[2016-09-15 06:19] LABS: WHITE BLOOD COUNT 1.2 X10e3 (4.0-10.5)
[2016-09-15 06:21] LABS: POTASSIUM 2.8 mmol/L (3.5-5.1)
[2016-09-16 06:39] LABS: HEMATOCRIT 33.1 % (35.0-45.0); HEMOGLOBIN 11.1 gm/dL (12.0-16.0); MEAN CELL VOLUME 84.1 FL (83-96); MEAN CORPUSCULAR HEMOGLOBIN 28.3 PG (28-34); MEAN CORPUSCULAR HGB CONC 33.7 g/dL (30-36); MEAN PLATELET VOLUME 9.7 FL (6.5-11.5); RED BLOOD COUNT 3.93 X10e (3.90-5.30); RED CELL DISTRIBUTION WIDTH 13.9 % (11.0-15.5); WHITE BLOOD COUNT 1.4 X10e3 (4.0-10.5)
[2016-09-16 07:08] LABS: BLOOD UREA NITROGEN 13 mg/dL (9-23); CALCIUM SERUM 7.8 mg/dL (8.4-10.2); CARBON DIOXIDE 33 mmol/L (22-31); CHLORIDE 89 mmol/L (100-111); CREATININE SERUM 0.4 mg/dL (0.6-1.4); GLOM FILT RATE Estimated ABOVE60 mL/min (>60); GLUCOSE FASTING 122 mg/dL (70-110); SODIUM 133 mmol/L (135-145)
[2016-09-16 07:10] LABS: POTASSIUM 2.9 mmol/L (3.5-5.1)
== END 2016-09-17 18:24 | DRG 189 ==
LOC: CED 13:18 → CEDOF 16:13 → C3A PCU 18:11
PROVIDERS: Emergency Medicine; Internal Medicine; Internal Medicine Hematology; Physician Assistant Medical
DX: J96.21 Acute and chronic respiratory failure with hypoxia (principal); D61.810 Antineoplastic chemotherapy induced pancytopenia; C78.7 Secondary malignant neoplasm of liver and intrahepatic bile duct; C79.70 Secondary malignant neoplasm of unspecified adrenal gland; C79.51 Secondary malignant neoplasm of bone; J44.0 Chronic obstructive pulmonary disease with (acute) lower respiratory infection; D69.6 Thrombocytopenia, unspecified; E09.65 Drug or chemical induced diabetes mellitus with hyperglycemia; C34.90 Malignant neoplasm of unspecified part of unspecified bronchus or lung; J44.1 Chronic obstructive pulmonary disease with (acute) exacerbation; E87.1 Hypo-osmolality and hyponatremia; D72.819 Decreased white blood cell count, unspecified; Z51.5 Encounter for palliative care; J20.9 Acute bronchitis, unspecified; Z66 Do not resuscitate; I10 Essential (primary) hypertension; E87.6 Hypokalemia; F17.200 Nicotine dependence, unspecified, uncomplicated; G89.29 Other chronic pain; M54.9 Dorsalgia, unspecified; E78.5 Hyperlipidemia, unspecified; Z86.73 Personal history of transient ischemic attack (TIA), and cerebral infarction without residual deficits; Z88.6 Allergy status to analgesic agent; Z79.01 Long term (current) use of anticoagulants; Z85.850 Personal history of malignant neoplasm of thyroid; Z90.710 Acquired absence of both cervix and uterus; Z80.3 Family history of malignant neoplasm of breast
CPT/HCPCS: 36600; 71010; 71275; 80048; 80053; 80076; 82308; 82553; 82607; 82728; 82803; 82947; 83540; 83550; 83605; 83735; 83880; 84132; 84484; 85025; 85027; 85610; 85730; 87040; 93005; 94640; 94660; 94760; 96361; 96374; 97110; 97116; 97162; 97166; 97530; 97535; 99291; G8978-GP; G8979-GP; G8987-GO; G8988-GO; J1447; J1650; J1815; J1956; J2920; J2930; J3010; J3420; Q0167; Q9967